=== PATIENT | male | born 1955 | race Caucasian/White ===

== ENCOUNTER 2016-07-03 20:32 | Emergency (ER) | payer MEDICARE, OTHER ==
[~2016-07-03] VITALS: Ht 198.1 cm; Wt 108.9 kg
[~2016-07-03 20:32] MED LIST: ESOM40CA39 PO; HUMOLOG INSULIN SC; INSUINJ37 SC; PREG50CA PO; TAM04C PO
[2016-07-03 23:37] VITALS: BP 161/96
[2016-07-04] MEDS ORDERED: LIDOCAINE 1% HCL (LOCAL ANESTH.) INJ 20ML MDV IJ ONE (00:15)
[2016-07-04] MEDS ORDERED: BACITRACIN-POLYMYXIN B TOPICAL OINT UD TOP ONE (00:38)
[2016-07-04] MEDS ORDERED: cefTRIAXone SOD 1,000 MG VL IM ONE (00:45)
[2016-07-04] MEDS ORDERED: BACITRACIN TOP OINT 1 UD PKG TOP ONE (00:45)
== END 2016-07-04 01:01 | disposition home or self-care (01) ==
LOC: ER 20:42
DX: S66.222A Laceration of extensor muscle, fascia and tendon of left thumb at wrist and hand level, initial encounter (principal); Z79.899 Other long term (current) drug therapy; Z79.4 Long term (current) use of insulin; E11.9 Type 2 diabetes mellitus without complications; B19.20 Unspecified viral hepatitis C without hepatic coma; W45.8XXA Other foreign body or object entering through skin, initial encounter; Y93.89 Activity, other specified; Y99.9 Unspecified external cause status; Y92.89 Other specified places as the place of occurrence of the external cause
CPT/HCPCS: 12042; 73140; 96372; 99284; J0696; J2001; 12002

== ENCOUNTER 2016-12-28 09:18 | Day surgery (SDC) | payer MEDICARE, OTHER ==
[2016-12-25 12:42] LABS: Basophils # (auto) 0 uL; Basophils % (auto) 0.4 % (0.0-2.0); CONDITION Y; Eosinophils # (auto) 0.1 uL; Eosinophils % (auto) 1.4 % (0.0-7.0); Hematocrit 34.3 % (41.0-53.0); Hemoglobin 11.6 g/dL (13.5-17.5); Lymphocytes # (auto) 0.6 uL; Lymphocytes % (auto) 14.7 % (10.0-50.0); Mean Corpuscular Hemoglobin 29.3 pg (28.0-32.0); Mean Corpuscular Hgb Conc. 33.8 g/dL (32.0-36.0); Mean Corpuscular Volume 86.7 fL (80.0-100.0); Mean Platelet Volume 10.2 fL (7.4-10.4); Monocytes # (auto) 0.4 uL; Monocytes % (auto) 9.2 % (0.0-12.0); Neutrophils # (auto) 2.9 uL; Neutrophils % (auto) 74.3 % (37.0-80.0); Platelet Count (auto) 167 10^3/uL (140-450); Red Cell Distribution Width 14.4 % (11.6-16.0)
[2016-12-25 13:23] LABS: INR 1.03 (0.9-1.15); Partial Thromboplastin Time 26.3 sec (22.64-33.71); Prothrombin Time 11.2 sec (9.37-12.3)
[2016-12-27 18:07] LABS: HCV Quantitiation HCV Not Detected IU/mL (.)
[~2016-12-28] VITALS: Ht 198.1 cm; Wt 99.8 kg
[~2016-12-28 09:18] MED LIST changes: -ESOM40CA39 PO; -HUMOLOG INSULIN SC; +INSLISPI SC; -PREG50CA PO
[2016-12-28] MEDS ORDERED: diphenhdrAMINE HCL 50 MG/1 ML VL ONE (10:43)
[2016-12-28] MEDS ORDERED: LIDOCAINE VISCOUS 2% 15ML UD ONE (10:43)
[2016-12-28] MEDS: fentaNYL CITRATE 100 MCG/2 ML VL ONE ×2 (10:53→10:57)
[2016-12-28] MEDS: MIDAZOLAM HCL 5 MG/ML-1ML VIAL ONE ×2 (10:53→10:57)
[2016-12-28 11:38] VITALS: BP 169/96
== END 2016-12-28 11:45 | disposition home or self-care (01) ==
LOC: GI 09:18
PROVIDERS: ATTEND Internal Medicine Gastroenterology
DX: K29.50 Unspecified chronic gastritis without bleeding (principal); E11.9 Type 2 diabetes mellitus without complications
CPT/HCPCS: 36415; 43239; 82962; 85025; 85610; 85730; 87522; J1200; J2250; J3010

== ENCOUNTER 2017-01-02 06:40 | Day surgery (SDC) | payer MEDICARE ==
[2016-12-31 12:52] LABS: Basophils # (auto) 0 uL; Basophils % (auto) 0.3 % (0.0-2.0); CONDITION Y; Eosinophils # (auto) 0.1 uL; Eosinophils % (auto) 1.5 % (0.0-7.0); Hematocrit 38.3 % (41.0-53.0); Hemoglobin 12.7 g/dL (13.5-17.5); Lymphocytes # (auto) 0.6 uL; Lymphocytes % (auto) 13.5 % (10.0-50.0); Mean Corpuscular Hgb Conc. 33.3 g/dL (32.0-36.0); Mean Corpuscular Volume 87.1 fL (80.0-100.0); Mean Platelet Volume 10.3 fL (7.4-10.4); Monocytes # (auto) 0.5 uL; Monocytes % (auto) 11.7 % (0.0-12.0); Neutrophils # (auto) 3.4 uL; Platelet Count (auto) 178 10^3/uL (140-450); Red Cell Distribution Width 14.4 % (11.6-16.0); White Blood Cell 4.7 10^3/uL (4.4-10.8)
[2016-12-31 12:55] LABS: Calcium 8.8 mg/dL (8.5-10.1); Potassium 4.1 mmol/L (3.5-5.1)
[2016-12-31 12:58] LABS: Albumin 3.2 g/dL (3.4-5.0); BUN/Creatinine Ratio 11.1
[2016-12-31 13:01] LABS: Bilirubin, Total 0.9 mg/dL (0.2-1.0); Total Protein 7.3 g/dL (6.4-8.2)
[2016-12-31 13:21] LABS: INR 1.05 (0.9-1.15); Partial Thromboplastin Time 28.3 sec (22.64-33.71); Prothrombin Time 11.5 sec (9.37-12.3)
[~2017-01-02] VITALS: Ht 198.1 cm; Wt 99.8 kg
[2017-01-02] MEDS ORDERED: ceFAZolin 1GM/50ML D5W 50 ML IV ONE (07:33)
[2017-01-02] MEDS ORDERED: BUPIVACAINE W/ EPINEPH 0.25% INJ 50ML MDV ONE (08:07)
[2017-01-02] MEDS ORDERED: BUPIVACAINE 0.25% INJ 50ML VIAL ONE (08:07)
[2017-01-02] MEDS ORDERED: LIDOCAINE W/ EPINEPHRINE 1 % INJ 30ML ONE (08:07)
[2017-01-02] MEDS ORDERED: MIDAZOLAM HCL 1MG/1ML-2 ML VIAL ONE ×2 (08:08→10:11)
[2017-01-02] MEDS ORDERED: ROCURONIUM 10MG/ML 10ML VIAL IV ONE (08:09)
[2017-01-02] MEDS ORDERED: fentaNYL CITRATE 5 ML ONE (08:10)
[2017-01-02] MEDS ORDERED: PROPOFOL 10 MG/ML 20 ML IV ONE (08:11)
[2017-01-02] MEDS ORDERED: hydrALAZINE HCL 20 MG/ML VL IV PRN (09:45)
[2017-01-02] MEDS ORDERED: ePHEDrine SULFATE 50 MG/ML AMP IV PRN (09:45)
[2017-01-02] MEDS ORDERED: ONDANSETRON HCL 4 MG/2 ML VIAL IV ONE (09:45)
[2017-01-02] MEDS: HYDROmorphone HCL 2 MG/ML VL IV PRN ×4 (10:00→10:20)
[2017-01-02 10:35] VITALS: BP 130/89
== END 2017-01-02 10:45 | disposition home or self-care (01) ==
LOC: SUR 06:40
PROVIDERS: ATTEND Surgery
DX: K40.90 Unilateral inguinal hernia, without obstruction or gangrene, not specified as recurrent (principal); K42.9 Umbilical hernia without obstruction or gangrene; E11.9 Type 2 diabetes mellitus without complications
CPT/HCPCS: 36415; 49505; 49585; 80053; 82962; 85025; 85610; 85730; 88302; J0690; J1170; J2250; J2405; J2704; J3010; J3490

== ENCOUNTER → 2017-01-21 | Outpatient (CLI) | payer OTHER | END | disposition home or self-care (01) | LOC: LAB 09:22 | PROVIDERS: ATTEND Surgery | DX: K40.90 Unilateral inguinal hernia, without obstruction or gangrene, not specified as recurrent (principal); Z98.890 Other specified postprocedural states | CPT/HCPCS: 36415; 82565; 84520 ==

== ENCOUNTER 2017-02-21 10:25 | Inpatient (IN) | payer MEDICARE, OTHER ==
[~2017-02-21] VITALS: Ht 195.6 cm; Wt 97.4 kg
[2017-02-21 11:27] LABS: Basophils # (auto) 0.1 uL; Basophils % (auto) 1.7 % (0.0-2.0); Eosinophils # (auto) 0.1 uL; Hematocrit 38.8 % (41.0-53.0); Lymphocytes % (auto) 20.5 % (10.0-50.0); Mean Corpuscular Hemoglobin 29.3 pg (28.0-32.0); Mean Corpuscular Hgb Conc. 33.6 g/dL (32.0-36.0); Mean Corpuscular Volume 87.3 fL (80.0-100.0); Mean Platelet Volume 10.4 fL (7.4-10.4); Monocytes # (auto) 0.5 uL; Monocytes % (auto) 11.4 % (0.0-12.0); Neutrophils # (auto) 3.1 uL; Neutrophils % (auto) 63.4 % (37.0-80.0); Platelet Count (auto) 163 10^3/uL (140-450); Red Cell Distribution Width 16.9 % (11.6-16.0); White Blood Cell 4.8 10^3/uL (4.4-10.8)
[2017-02-21 11:58] LABS: Albumin 3.1 g/dL (3.4-5.0); BUN/Creatinine Ratio 10.6; Bilirubin, Total 3.2 mg/dL (0.2-1.0); Calcium 9.1 mg/dL (8.5-10.1); Potassium 4.3 mmol/L (3.5-5.1); Total Protein 7.7 g/dL (6.4-8.2)
[2017-02-21] MEDS ORDERED: IOHEXOL 300 MG/ML 100ML BOTTLE IJ ONE (15:46)
[2017-02-21] MEDS ORDERED: SODIUM CHLORIDE 0.9% 1,000 ML IV SCH (16:27)
[2017-02-21] MEDS ORDERED: PROMETHAZINE HCL 25 MG/ML 1ML IV PRN (16:30)
[2017-02-21] MEDS ORDERED: NITROGLYCERIN 0.4 MG SL TAB SL PRN (16:30)
[2017-02-21] MEDS ORDERED: chlordiazePOXIDE HCL 25 MG CAP PO PRN (16:30)
[2017-02-21] MEDS ORDERED: LORazepam 0.5 MG TAB PO PRN (16:30)
[2017-02-21] MEDS ORDERED: MORPHINE SULF INJ 2 MG/ML SYRINGE 1ML IV PRN ×2 (16:30)
[2017-02-21] MEDS ORDERED: cefTRIAXone 1GM/50ML D5W 50 ML IV ONE (16:30)
[2017-02-21] MEDS ORDERED: PANTOPRAZOLE 40 MG/10 ML VIAL IV ONE (16:30)
[2017-02-21] MEDS ORDERED: MORPHINE SULFATE 4 MG/ML SYRG IV PRN (16:30)
[2017-02-21] MEDS ORDERED: DEXTROSE (50%) 50ML SYRG IV PRN (16:30)
[2017-02-21] MEDS ORDERED: THIAMINE HCL 100 MG/ML 2ML VIAL IV ONE (16:30)
[2017-02-21 17:02] LABS: Amylase 6 U/L (25-115)
[2017-02-21 17:30] LABS: INR 1.07 (0.9-1.15); Prothrombin Time 11.7 sec (9.37-12.3)
[2017-02-21] MEDS: InsuLIN REG 1unit/0.01ml Soln (100units/ml) SC SCH ×2 (17:57→23:57)
[2017-02-21] MEDS: ACCU-CHEK COMFORT CURVE STRIP VI SCH ×2 (17:57→23:57)
[2017-02-21] MEDS: SODIUM CHLORIDE 0.9% 1,000 ML IV SCH (18:05)
[2017-02-21] MEDS: TAMSULOSIN HYDROCHLORIDE 0.4 MG CAP PO SCH (18:28)
[2017-02-21] MEDS: metroNIDAZOLE 500MG/100ML 100 ML IV SCH (20:42)
[2017-02-21 22:00] VITALS: BP 134/78
[2017-02-22] MEDS: SODIUM CHLORIDE 0.9% 1,000 ML IV SCH ×2 (00:27→10:22)
[2017-02-22] MEDS: metroNIDAZOLE 500MG/100ML 100 ML IV SCH ×3 (01:01→12:48)
[2017-02-22 05:41] VITALS: BP 121/53
[2017-02-22] MEDS: InsuLIN REG 1unit/0.01ml Soln (100units/ml) SC SCH ×3 (05:42→17:37)
[2017-02-22] MEDS: ACCU-CHEK COMFORT CURVE STRIP VI SCH ×3 (05:42→17:38)
[2017-02-22 06:36] LABS: Basophils # (auto) 0.1 uL; Basophils % (auto) 1.4 % (0.0-2.0); Eosinophils # (auto) 0.2 uL; Eosinophils % (auto) 4.4 % (0.0-7.0); Hematocrit 34.2 % (41.0-53.0); Hemoglobin 11.5 g/dL (13.5-17.5); Lymphocytes # (auto) 0.3 uL; Lymphocytes % (auto) 9.3 % (10.0-50.0); Mean Corpuscular Hemoglobin 29.3 pg (28.0-32.0); Mean Corpuscular Hgb Conc. 33.7 g/dL (32.0-36.0); Mean Corpuscular Volume 86.9 fL (80.0-100.0); Mean Platelet Volume 10.4 fL (7.4-10.4); Monocytes # (auto) 0.5 uL; Monocytes % (auto) 13.9 % (0.0-12.0); Neutrophils # (auto) 2.6 uL; Nucleated Red Blood Cells % 0.1 %; Platelet Count (auto) 122 10^3/uL (140-450); Red Cell Distribution Width 16.9 % (11.6-16.0); White Blood Cell 3.7 10^3/uL (4.4-10.8)
[2017-02-22 06:56] LABS: Albumin 2.6 g/dL (3.4-5.0); BUN/Creatinine Ratio 14.5; Bilirubin, Total 2.7 mg/dL (0.2-1.0); Calcium 8.6 mg/dL (8.5-10.1); Potassium 3.8 mmol/L (3.5-5.1); Total Protein 6.7 g/dL (6.4-8.2)
[2017-02-22 08:55] VITALS: BP 140/75
[2017-02-22] MEDS ORDERED: cefTRIAXone 1GM/50ML D5W 50 ML IV SCH (09:00)
[2017-02-22] MEDS ORDERED: LACTULOSE 20Gm/30ML SOLN PO PRN (09:00)
[2017-02-22] MEDS ORDERED: PANTOPRAZOLE 40 MG/10 ML VIAL IV SCH (10:00)
[2017-02-22] MEDS: THIAMINE HCL 100 MG/ML 2ML VIAL IV SCH (10:22)
[2017-02-22] MEDS ORDERED: LIDOCAINE 2%HCL (LOCAL ANESTH.) INJ 20ML MDV ONE (10:51)
[2017-02-22 12:57] VITALS: BP 132/80
[2017-02-22 16:33] VITALS: BP 156/88
[2017-02-22] MEDS: TAMSULOSIN HYDROCHLORIDE 0.4 MG CAP PO SCH (17:37)
[2017-02-22 21:04] VITALS: BP 120/63
[2017-02-23 04:53] VITALS: BP 128/66
[2017-02-23] MEDS: InsuLIN REG 1unit/0.01ml Soln (100units/ml) SC SCH ×3 (06:00→12:00)
[2017-02-23] MEDS: ACCU-CHEK COMFORT CURVE STRIP VI SCH ×3 (06:00→12:00)
[2017-02-23 08:00] VITALS: BP 144/83
[2017-02-23 09:00] VITALS: BP 144/83
[2017-02-23] MEDS: THIAMINE HCL 100 MG/ML 2ML VIAL IV SCH (09:47)
[2017-02-23 13:00] VITALS: BP 157/92
[2017-02-23 16:45] VITALS: BP 144/83
== END 2017-02-23 17:15 | disposition hospice, home (50) | DRG 436 ==
LOC: ER 10:25 → TELE 10:26 → TELE-WESTW 18:49 → WEST WING 02-22 15:01
PROVIDERS: ADMIT Internal Medicine; ATTEND Internal Medicine
PROC: 0W9G3ZZ Drainage of Peritoneal Cavity, Percutaneous Approach (ICD-10-PCS; principal; 2017-02-22)
DX: C22.0 Liver cell carcinoma (principal); K80.00 Calculus of gallbladder with acute cholecystitis without obstruction; E44.0 Moderate protein-calorie malnutrition; E11.42 Type 2 diabetes mellitus with diabetic polyneuropathy; I27.2 Other secondary pulmonary hypertension; E87.1 Hypo-osmolality and hyponatremia; K70.31 Alcoholic cirrhosis of liver with ascites; K21.9 Gastro-esophageal reflux disease without esophagitis; K59.00 Constipation, unspecified; M14.672 Charcot's joint, left ankle and foot; Z79.4 Long term (current) use of insulin; Z80.8 Family history of malignant neoplasm of other organs or systems; Z86.69 Personal history of other diseases of the nervous system and sense organs; Z83.3 Family history of diabetes mellitus; Z82.49 Family history of ischemic heart disease and other diseases of the circulatory system; Z87.891 Personal history of nicotine dependence; Z87.81 Personal history of (healed) traumatic fracture
CPT/HCPCS: 36415; 74177; 76700; 76942; 80053; 80061; 82105; 82150; 82378; 82962; 83036; 83690; 85025; 85610; 85652; 87045; 87493; 87899; 93005; 96361; 96374; 96375; C9113; J0696; J1815; J3490